=== PATIENT | male | born 1950 | race Caucasian/White ===

== ENCOUNTER → 2021-03-31 | Day surgery (SDC) | payer MEDICARE, BC ==
[~2021-03-31] MED LIST: Ketamine 200 MG/20 ML MDV ONE; Lactated Ringers 1,000 ML IV SCH; Propofol 200 MG/20 ML SDV ONE
[2021-03-31 11:08] VITALS: BP 151/73; PULSE 64
--- NOTE | 2021-03-31 11:47 | OR ---
DATE OF OPERATION: 03/31/2021 PREOPERATIVE DIAGNOSIS: FAMILY HISTORY OF COLON CANCER. POSTOPERATIVE DIAGNOSIS: FAMILY HISTORY OF COLON CANCER. SURGEON: Hector Cortes MD PROCEDURE: SURVEILLANCE COLONOSCOPY. ANESTHESIA: MAC. COMPLICATIONS: None. SPECIMEN: None. FINDINGS: 1. Full-length surveillance colonoscopy. 2. Moderate sigmoid diverticulosis. RECOMMENDATIONS: Followup colonoscopy in 5 years. INDICATIONS: The patient has a distant history of colon polyps. His last colonoscopy was normal, but he does have a family history of colon cancer in his father and he is due for a 5-year surveillance scope. DESCRIPTION OF PROCEDURE: The patient was prepped and draped, placed in the left lateral decubitus position. A lubricated Olympus colonoscope was inserted and easily advanced to the cecum. Direct visualization of the ileocecal valve and appendiceal orifice was accomplished. The bowel prep was adequate. Upon withdrawal of the scope, throughout the ascending, transverse, and descending colon, no lesions were seen. The patient does have moderate diverticular disease throughout the entire sigmoid colon and in the rectosigmoid junction. No inflammatory changes were seen. Throughout the whole colon, I could find no polyps, masses, ulceration, or bleeding sites. No vascular abnormalities or signs of colitis. The rectal vault was benign. Prominent vascular tissue is seen throughout the whole entire rectal vault, but no overt hemorrhoids at this point. Retroflexion showed no perianal lesions. Air was suctioned. The scope was removed without complication. HOLLAND/DHEERAJ /[id number]
== END ==
LOC: CC.SDS 08:35
PROVIDERS: ATTEND Family Medicine
DX: Z12.11 Encounter for screening for malignant neoplasm of colon (principal); K57.30 Diverticulosis of large intestine without perforation or abscess without bleeding; E78.00 Pure hypercholesterolemia, unspecified; F51.01 Primary insomnia; M19.90 Unspecified osteoarthritis, unspecified site; R79.89 Other specified abnormal findings of blood chemistry; M06.09 Rheumatoid arthritis without rheumatoid factor, multiple sites; E66.9 Obesity, unspecified; Z86.010 Personal history of colon polyps; Z80.0 Family history of malignant neoplasm of digestive organs; Z68.36 Body mass index [BMI] 36.0-36.9, adult; Z79.4 Long term (current) use of insulin; Z79.899 Other long term (current) drug therapy
CPT/HCPCS: 00812; 99100; G0105; J2704; J7120